=== PATIENT | male | born 1980 | race Two or more races ===

== ENCOUNTER 2022-08-22 12:30 | Emergency (ER) | payer BC ==
[~2022-08-22] VITALS: Ht 172.7 cm; Wt 113.4 kg
--- NOTE | 2022-08-22 12:50 | NUR ---
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 NO VOMITING NOR NAUSEOUSNESS. NO CR DISTRESS. PTY AMBULATORY STEADY GAIT AOX4. DR DE LA GARZA MADE AWARE. PTU ON GOWN IV INSERTED BLD DRAWN COLLECTED URINE SENT TO LAB.
[2022-08-22 13:10] LABS: BASOPHILS % (AUTO) 0.7 % (0.0-2.0); EOSINOPHILS % (AUTO) 2.2 % (0.0-6.0); HEMATOCRIT 48 % (39-51); HEMOGLOBIN 15.6 g/dL (13.5-17.5); LYMPHOCYTES # (AUTO) 1.8 K/uL (0.8-4.8); LYMPHOCYTES % (AUTO) 27.7 % (20.0-44.0); MEAN CORPUSCULAR HGB CONC 33 g/dl (31.0-36.0); MEAN CORPUSCULAR VOLUME 78 fL (80-96); MONOCYTES # (AUTO) 0.7 K/uL (0.1-1.30); MONOCYTES % (AUTO) 10.5 % (2.0-12.0); NEUTROPHILS # (AUTO) 3.8 K/uL (1.8-8.9); NEUTROPHILS % (AUTO) 58.9 % (43.0-81.0); PLATELET COUNT (AUTO) 151 K/uL (150-450); WHITE BLOOD COUNT (AUTO) 6.4 K/uL (4.3-11.0)
[2022-08-22 13:20] LABS: CALCIUM, SERUM 9.3 mg/dL (8.5-10.1); CARBON DIOXIDE 29 mmol/L (21-32); CHLORIDE 104 mmol/L (98-107); CREATININE 1.1 mg/dL (0.6-1.3); GLUCOSE 110 mg/dL (74-106); POTASSIUM 3.9 mmol/L (3.5-5.1); SODIUM SERUM 138 mmol/L (136-145); UREA NITROGEN, BLOOD 12 mg/dL (7-18)
[2022-08-22 13:33] LABS: COLOR,URINE YELLOW (YELLOW)
[2022-08-22 13:34] LABS: BILIRUBIN,URINE NEGATIVE (NEGATIVE); LEUKOCYTE ESTERASE ,URINE NEGATIVE (NEGATIVE); NITRITE, URINE NEGATIVE (NEGATIVE); PROTEIN,URINE NEGATIVE (NEGATIVE); UGLUCOSE NEGATIVE (NEGATIVE); UROBILINOGEN,URINE 0.2 EU/dL (0.2)
--- NOTE | 2022-08-22 13:35 | NUR ---
COVID SWAB SENT TO LAB
[2022-08-22 13:37] LABS: ALANINE AMINOTRANSFERASE 91 U/L (12-78); ALBUMIN 4.4 g/dL (3.4-5.0); ALKALINE PHOSPHATASE 81 U/L (46-116); ASPARTATE AMINOTRANSFERASE 40 U/L (15-37); BILIRUBIN,DIRECT 0.1 mg/dL (0.0-0.2); BILIRUBIN,TOTAL 0.5 mg/dL (0.2-1.0); LIPASE 84 U/L (73-393); TOTAL PROTEIN, SERUM 8.2 g/dL (6.4-8.2)
--- NOTE | 2022-08-22 13:45 | NUR ---
PT PUT ON MONITOR AND PULSE, NURSING CARE CONTINUE
--- NOTE | 2022-08-22 13:49 | NUR ---
PAIN ASSESSED FROM 02/24 NOW 10
[2022-08-22] MEDS ORDERED: MAG HYDROX/AL HYDROX/SIMETH 30 ML UDC PO ONE (14:30)
[2022-08-22] MEDS ORDERED: LIDOCAINE VISCOUS 2% UD 15 ML UDC MM ONE (14:30)
[2022-08-22] MEDS ORDERED: MAG HYDROX/AL HYDROX/SIMETH 30 ML UDC ONE (14:47)
[2022-08-22] MEDS ORDERED: LIDOCAINE 2% JEL UROJET 10 ML MM ONE (14:49)
[2022-08-22] MEDS ORDERED: PANT40TA2 PO (14:53)
[2022-08-22 15:26] VITALS: BP 125/70
[2022-08-22 16:01] LABS: RBC,URINE 0-2 /HPF (0-2)
[2022-08-22 16:02] LABS: BACTERIA,URINE Few /HPF (None Seen); SQUAMOUS EPITHELIAL CELL,UR Few /HPF (None Seen); WBC,URINE NONE SEEN /HPF (0-3)
== END 2022-08-22 15:27 | disposition home or self-care (01) ==
LOC: ER 12:43
DX: R10.13 Epigastric pain (principal); E78.00 Pure hypercholesterolemia, unspecified; Z20.822 Contact with and (suspected) exposure to COVID-19
CPT/HCPCS: 99285; 76705; 71045; 87426; 93005 ×2; 87804 ×2; 85025; 80048; 83690; 80076; 81001; 36415; 84484; J3490; C9803